=== PATIENT | female | born 1960 | race Caucasian/White ===

== ENCOUNTER 2022-09-01 06:44 | Day surgery (SDC) | payer MEDICARE, OTHER, SELFPAY ==
[2022-09-01] VITALS (16 sets, daily range): BP systolic 114–158; BP diastolic 61–85; PULSE 51–62; RESP 14–20; TEMP 36.4–36.7; O2SAT 95–99; BMI 27.9
[2022-09-01] MEDS: LACTATED RINGERS 1000 ML 1,000 ML 100 ML IV (07:00)
[2022-09-01] MEDS: SODIUM CHLORIDE 0.9 % (FLUSH) 10 ML SYRINGE IVF (07:48)
[2022-09-01] MEDS: CLINDAMYCIN PHOSPHATE/D5W 600 MG/50 ML PIGGYBACK IVPB (08:20)
[2022-09-01] MEDS: BUPIVACAINE 0.5% 30 ML INJECTION (09:00)
--- NOTE | 2022-09-01 09:16 | PM.GSPRC ---
Operative Note Date of procedure: 09/01/22 Type of Procedure: Laparoscopic cholecystectomy Procedure Description: After discussing the risks and benefits of the procedure, the patient signed informed consent.? The operative site was marked and the patient was brought to the operating room and placed on the operating table in supine position.? Care was taken to pad the patient's pressure points.?? The patient was then intubated by anesthesia.?? The operative site was then prepped and draped in the usual sterile fashion.? A time-out was then performed. Entrance to the abdomen was gained via a 5 mm Visiport in the left upper quadrant. The abdomen was insufflated and briefly surveyed for signs of injury. There was none. 11 mm umbilical port was placed as well as 2 working ports along the right costal margin. Patient was then placed in reverse Trendelenburg position with the right side up. The gallbladder fundus was grasped and retracted cephalad. A small amount of dissection was needed to free omental adhesions from the gallbladder. The infundibulum was grasped. A combination of hook cautery and blunt dissection was used to carefully dissect out the cystic duct and artery until they could clearly be seen entering the gallbladder without any intervening structures. The gallbladder was dissected off the cystic plate to achieve the critical view. Once this was achieved the cystic duct and artery were each clipped with 2 clips proximally and 1 clip distally and transected with the scissors. The gallbladder was then taken off of the liver bed. And removed from the abdomen using an Endo-Catch bag. The gallbladder bed was surveyed for hemostasis. A small amount of bile which had spilled was suctioned from the abdomen the ports were then removed under direct vision. The umbilical port fascia was closed with 0 Vicryl. The skin was closed with absorbable subcuticular suture. Instrument sponge and needle counts were correct at the end of the case. The patient was then woken and transferred to the PACU in stable condition. ? Sterile dressings were then applied. ? The patient was then woken and transported to the recovery area in stable condition. ? The patient tolerated the procedure well. Findings: Cholelithiasis, normal gallbladder. Anesthesia: GETA Surgeon: Abril Santiago MD Estimated blood loss (mL): 5 Condition: stable Disposition: PACU
--- NOTE | 2022-09-01 09:26 | W.ANESCHARGE ---
Anesthesia Charges Start Date/Time Anesthesia Start Date: 09/01/22 Anesthesia Start Time: 08:14 Stop Date/Time Anesthesia Stop Date: 09/01/22 Anesthesia Stop Time: 09:25 Summary Emergency: No
--- NOTE | 2022-09-01 10:03 | SUR.PHASEI ---
Pt o2 decreases when sleeping, o2 eaaplied at 3l/min nc wile still drowsy
== END 2022-09-01 11:35 | disposition home or self-care (01) ==
PROVIDERS: PCP Physician Assistant Medical; Visit Provider Surgery
PROC: 0FT44ZZ Resection of Gallbladder, Percutaneous Endoscopic Approach (ICD-10-PCS; CPT 47562; principal; 2022-09-01 08:00)
DX: K80.20 Calculus of gallbladder without cholecystitis without obstruction (principal)
CPT/HCPCS: 47562; 00790; 88304; A9270; J0330; J1100; J1200; J1885; J2250; J2405; J2704; J2710; J3010; J3490; J7120; S0077

== ENCOUNTER 2024-08-23 08:27 | Outpatient (CLI) | payer MEDICARE, MEDICAID, SELFPAY ==
--- NOTE | 2024-08-23 08:58 | W.ANESCHARGE ---
Anesthesia Charges Start Date/Time Anesthesia Start Date: 08/23/24 Anesthesia Start Time: 09:08 Stop Date/Time Anesthesia Stop Date: 08/23/24 Anesthesia Stop Time: 09:36
--- NOTE | 2024-08-23 09:38 | W.ANESCHARGE ---
Anesthesia Charges Start Date/Time Anesthesia Start Date: 08/23/24 Anesthesia Start Time: 09:08 Stop Date/Time Anesthesia Stop Date: 08/23/24 Anesthesia Stop Time: 09:36
== END 2024-08-23 08:28 | disposition home or self-care (01) ==
PROVIDERS: PCP Physician Assistant Medical; Visit Provider Internal Medicine Gastroenterology
DX: Z12.11 Encounter for screening for malignant neoplasm of colon (principal); Q43.8 Other specified congenital malformations of intestine
CPT/HCPCS: 00811; 45380; 88305; J2405; J2704

== ENCOUNTER 2025-09-16 10:34 | Outpatient (CLI) | payer MEDICARE, MEDICAID, SELFPAY | END 2025-09-16 10:35 | disposition home or self-care (01) | LOC: INJ CL 10:36 | PROVIDERS: PCP Physician Assistant Medical; Visit Provider Family Medicine | DX: M54.16 Radiculopathy, lumbar region (principal); M51.369 Other intervertebral disc degeneration, lumbar region without mention of lumbar back pain or lower extremity pain; M48.062 Spinal stenosis, lumbar region with neurogenic claudication | CPT/HCPCS: 64483; Q9966 ==